=== PATIENT | female | born 1965 ===

== ENCOUNTER 2017-02-19 11:36 | Emergency (ER) | payer MEDICAID ==
[2017-02-19 11:41] VITALS: BMI 32.3
[2017-02-19 11:43] VITALS: BP 144/74; PULSE 72; RESP 19; TEMP 98.3; O2SAT 97
--- NOTE | 2017-02-19 12:16 | ED PDOC ---
Lower Extremity Pain/Injury Time Seen by Provider: 02/19/17 12:14 Chief Complaint (Nursing): Lower Extremity Problem/Injury Chief Complaint (Provider): knee pain History Per: Patient History/Exam Limitations: no limitations Additional Complaint(s): 51yo F in ED for eval of knee pain-states that she had a meniscus repair 3[place]4 [place] ago [place] the [place]. pt admits that since she has been having intermittent pain and in past 2 days made worse. pt has nt taken anything for pain. denies direct injury denies fever chills denies swelling or dec ROM of knee. Pt admits o pain with walking and with touch. Past Medical History Reviewed: Historical Data, Nursing Documentation, Vital Signs Vital Signs: Last Vital Signs Temp 98.3 F 02/19/17 11:41 Pulse 72 02/19/17 11:41 Resp 19 02/19/17 11:41 BP 144/74 02/19/17 11:41 Pulse Ox 97 02/19/17 11:41 - Medical History PMH: Diverticulitis, Hiatal Hernia, HTN - Family History Family History: States: No Known Family Hx - Home Medications Home Medications: Ambulatory Orders Medication Instructions Recorded Naproxen [Naprosyn] 500 mg PO BID #30 tablet 02/19/17 - Allergies Allergies/Adverse Reactions: Allergies Allergy/AdvReac Type Severity Reaction Status Date / Time No Known Allergies Allergy Verified 02/19/17 12:08 Wells Criteria for PE - Wells Criteria for Pulmonary Embolism Clinical Signs and Symptoms of DVT: No P.E is #1 Diagnosis, or Equally Likely: No Heart Rate >100: No Immobilization at least 3 days;Surgery previous 4 weeks: No Previous, objectively diagnosed PE or DVT: No Hemoptysis: No Malignancy w/treatment within 6 months, or palliative: No Total Score: 0 Review of Systems ROS Statement: Except As Marked, All Systems Reviewed And Found Negative Musculoskeletal: Positive for: Other (knee pain) Physical Exam - Reviewed Nursing Documentation Reviewed: Yes Vital Signs Reviewed: Yes - Physical Exam Appears: Positive for: Well, Non-toxic, No Acute Distress Head Exam: Positive for: ATRAUMATIC, NORMAL INSPECTION, NORMOCEPHALIC Skin: Positive for: Normal Color, Warm, DRY Cardiovascular/Chest: Positive for: Regular Rate, Rhythm Respiratory: Positive for: CNT, Normal Breath Sounds Extremity: Positive for: Other (left knee: mild swelling noted. mild tenderness noted to lateral side, no DEC ROM to knee. no effusion noted. ) Neurologic/Psych: Positive for: Alert, Oriented - ECG O2 Sat by Pulse Oximetry: 97 Medical Decision Making Medical Decision Making: pt will get donavan care assistance, torodol IM, and f/u with orthoedpics Disposition - Clinical Impression Clinical Impression: Knee injury - Patient ED Disposition Is Patient to be Admitted: No Counseled Patient/Family Regarding: Diagnosis, Need For Followup, Rx Given - Disposition Referrals: [facility] [Outside] [facility] [Outside] Disposition: Routine/Home Disposition Time: 12:19 Condition: STABLE Prescriptions: Naproxen [Naprosyn] 500 mg PO BID #30 tablet Instructions: ACL Injury (ED) Print Language: [place] ISLAND[place]
== END 2017-02-19 13:06 | disposition home or self-care (01) ==
LOC: EDBD 11:36 → H.ER 11:36
DX: M25.562 Pain in left knee (principal)
CPT/HCPCS: 81025; 96372; 99283; J1885